=== PATIENT | female | born 1940 | race Caucasian/White ===

== ENCOUNTER 2025-02-22 15:28 | Emergency (ER) | payer MEDICARE, OTHER | END 2025-02-22 17:44 | disposition home or self-care (01) | LOC: MW.ED 15:28 | DX: S80.02XA Contusion of left knee, initial encounter (principal); S00.31XA Abrasion of nose, initial encounter; S00.81XA Abrasion of other part of head, initial encounter; Z75.3 Unavailability and inaccessibility of health-care facilities; W19.XXXA Unspecified fall, initial encounter | CPT/HCPCS: 70450; 70486; 72125; 73562; 99284; A9270; 99283 ==